=== PATIENT | male | born 1995 | race African-American/Black ===

== ENCOUNTER 2021-09-21 22:43 | Emergency (ER) | payer OTHER ==
[~2021-09-21] VITALS: Ht 180.3 cm; Wt 75.0 kg
[2021-09-21 23:45] VITALS: BP 108/67
[2021-09-22] MEDS ORDERED: ACET-66 PO (00:26)
[2021-09-22] MEDS ORDERED: IBUP-1554 PO (00:26)
[2021-09-22] MEDS ORDERED: PENI500T2 PO (00:26)
[2021-09-22] MEDS ORDERED: CEPHALEXIN MONOHYDRATE 500 MG CAPSULE PO ONE (00:30)
[2021-09-22] MEDS ORDERED: IBUPROFEN 600 MG TABLET PO ONE (00:30)
== END 2021-09-22 00:49 | disposition home or self-care (01) ==
LOC: EMS 22:51
DX: K08.89 Other specified disorders of teeth and supporting structures (principal)
CPT/HCPCS: 99283

== ENCOUNTER 2024-08-27 09:17 | Emergency (ER) | payer OTHER ==
[~2024-08-27] VITALS: Ht 177.8 cm; Wt 72.7 kg
[~2024-08-27 09:17] MED LIST: ACET-66 PO; IBUP-1554 PO; PENI500T2 PO
[2024-08-27 09:31] VITALS: TEMP 98.5
[2024-08-27] MEDS: SULFAMETHOX/TRIMETH DS 800-160 MG/TABLET PO ONE (11:08)
[2024-08-27] MEDS: CEPHALEXIN MONOHYDRATE 500 MG CAPSULE PO ONE (11:08)
[2024-08-27] MEDS ORDERED: SULF-261 PO (11:11)
[2024-08-27] MEDS ORDERED: CEPH-558 PO (11:11)
[2024-08-27 11:33] VITALS: BP 119/80; PULSE 90; RESP 18; O2SAT 100
== END 2024-08-27 11:42 | disposition home or self-care (01) ==
LOC: EMS 09:21
DX: K13.0 Diseases of lips (principal); F12.90 Cannabis use, unspecified, uncomplicated; F17.210 Nicotine dependence, cigarettes, uncomplicated
CPT/HCPCS: 99284; Z7502; Z7610